=== PATIENT | female | born 1950 | race Caucasian/White ===

== ENCOUNTER 2021-08-03 10:43 | Inpatient (IN) | payer MEDICARE, MEDICAID ==
[~2021-08-03] VITALS: Ht 157.5 cm; Wt 84.1 kg
[~2021-08-03 10:43] MED LIST: ASPIR-LOW81 MG PO; DIAMOX 250 MG250 MG PO; IPRAT-ALBUT 0.5-3 ML INH; LISINOPRIL5 MG PO; PROTONIX40 MG PO
[2021-08-03 11:51] LABS: HEMOGLOBIN 15.6 gm/dl (12.3-15.3); RED BLOOD COUNT 5.54 M/UL (4.00-5.10)
[2021-08-03] MEDS ORDERED: MULTIVITAMIN1 EACH PO (17:22)
[2021-08-04 02:26] LABS: HEMOGLOBIN 14.9 gm/dl (12.3-15.3); RED BLOOD COUNT 5.35 M/UL (4.00-5.10)
[2021-08-04 02:40] LABS: WHITE BLOOD COUNT 36.4 K/UL (4.5-11.0)
[2021-08-05 04:59] LABS: HEMOGLOBIN 13.4 gm/dl (12.3-15.3); RED BLOOD COUNT 4.89 M/UL (4.00-5.10)
[2021-08-05 05:33] LABS: BUN/CREATININE RATIO 33 (0-10)
[2021-08-05 05:37] LABS: WHITE BLOOD COUNT 22.1 K/UL (4.5-11.0)
[2021-08-05 12:54] LABS: BUN/CREATININE RATIO 34 (0-10)
[2021-08-05 19:52] LABS: BUN/CREATININE RATIO 30 (0-10)
[2021-08-06 04:39] LABS: HEMOGLOBIN 12.6 gm/dl (12.3-15.3); RED BLOOD COUNT 4.62 M/UL (4.00-5.10)
[2021-08-06 04:44] LABS: WHITE BLOOD COUNT 16.4 K/UL (4.5-11.0)
[2021-08-06 05:00] LABS: BUN/CREATININE RATIO 29 (0-10)
[2021-08-07 05:05] LABS: HEMOGLOBIN 11.9 gm/dl (12.3-15.3); RED BLOOD COUNT 4.38 M/UL (4.00-5.10); WHITE BLOOD COUNT 14.9 K/UL (4.5-11.0)
[2021-08-07 05:32] LABS: BUN/CREATININE RATIO 28 (0-10)
[2021-08-08 04:41] LABS: HEMOGLOBIN 11.5 gm/dl (12.3-15.3); RED BLOOD COUNT 4.35 M/UL (4.00-5.10)
[2021-08-08 04:50] LABS: WHITE BLOOD COUNT 6.1 K/UL (4.5-11.0)
[2021-08-08 05:01] LABS: BUN/CREATININE RATIO 35 (0-10)
[2021-08-09 04:35] LABS: RED BLOOD COUNT 4.62 M/UL (4.00-5.10)
[2021-08-09 04:48] LABS: BUN/CREATININE RATIO 40 (0-10)
[2021-08-10 05:18] LABS: HEMOGLOBIN 13.3 gm/dl (12.3-15.3); RED BLOOD COUNT 5.01 M/UL (4.00-5.10)
[2021-08-10 05:39] LABS: BUN/CREATININE RATIO 51 (0-10)
[2021-08-11 04:16] LABS: HEMOGLOBIN 13.5 gm/dl (12.3-15.3); RED BLOOD COUNT 5.2 M/UL (4.00-5.10)
[2021-08-11 04:30] LABS: WHITE BLOOD COUNT 11.1 K/UL (4.5-11.0)
[2021-08-11 04:44] LABS: BUN/CREATININE RATIO 53 (0-10)
[2021-08-12 05:53] LABS: BUN/CREATININE RATIO 48 (0-10)
[2021-08-14 05:08] LABS: HEMOGLOBIN 14.1 gm/dl (12.3-15.3); RED BLOOD COUNT 5.22 M/UL (4.00-5.10); WHITE BLOOD COUNT 17.1 K/UL (4.5-11.0)
[2021-08-14 05:19] LABS: BUN/CREATININE RATIO 56 (0-10)
[2021-08-15 04:58] LABS: HEMOGLOBIN 13.8 gm/dl (12.3-15.3); RED BLOOD COUNT 5.23 M/UL (4.00-5.10)
[2021-08-15 04:59] LABS: WHITE BLOOD COUNT 12.6 K/UL (4.5-11.0)
[2021-08-18 05:14] LABS: RED BLOOD COUNT 4.33 M/UL (4.00-5.10); WHITE BLOOD COUNT 4.8 K/UL (4.5-11.0)
[2021-08-18 05:15] LABS: HEMOGLOBIN 11.4 gm/dl (12.3-15.3)
[2021-08-18 05:43] LABS: BUN/CREATININE RATIO 54 (0-10)
[2021-08-18] MEDS ORDERED: TYLENOL ELIXIR NG (12:18)
[2021-08-18] MEDS ORDERED: ENOXAPARIN40 MG/0.4 SC (12:18)
[2021-08-18] MEDS ORDERED: IPRAT-ALBUT 0.5-3 ML NEB (12:18)
[2021-08-18] MEDS ORDERED: CHRONULAC20 GM/30 M NG (12:18)
[2021-08-18] MEDS ORDERED: BISACODYL10 MG PR (12:18)
== END 2021-08-18 16:05 | DRG 4 ==
LOC: ER1 10:43 → CDU 15:55 → CCU 15:55 → CDU 18:25 → CCU 19:37
PROVIDERS: Internal Medicine Infectious Disease; Internal Medicine Nephrology; Internal Medicine Pulmonary Disease; Physician Assistant; Student in an Organized Health Care Education/Training Program; ADMIT Internal Medicine
PROC: 5A1955Z Respiratory Ventilation, Greater than 96 Consecutive Hours (ICD-10-PCS; principal; 2021-08-03)
PROC: 0BH17EZ Insertion of Endotracheal Airway into Trachea, Via Natural or Artificial Opening (ICD-10-PCS; principal; 2021-08-03)
PROC: 3E033XZ Introduction of Vasopressor into Peripheral Vein, Percutaneous Approach (ICD-10-PCS; 2021-08-03)
PROC: 02HV33Z Insertion of Infusion Device into Superior Vena Cava, Percutaneous Approach (ICD-10-PCS; 2021-08-03)
PROC: B548ZZA Ultrasonography of Superior Vena Cava, Guidance (ICD-10-PCS; 2021-08-03)
PROC: B24BZZZ Ultrasonography of Heart with Aorta (ICD-10-PCS; 2021-08-04)
PROC: 0DH63UZ Insertion of Feeding Device into Stomach, Percutaneous Approach (ICD-10-PCS; 2021-08-06)
PROC: 3E0G76Z Introduction of Nutritional Substance into Upper GI, Via Natural or Artificial Opening (ICD-10-PCS; 2021-08-06)
PROC: 0BH17EZ Insertion of Endotracheal Airway into Trachea, Via Natural or Artificial Opening (ICD-10-PCS; 2021-08-06)
PROC: 0B113F4 Bypass Trachea to Cutaneous with Tracheostomy Device, Percutaneous Approach (ICD-10-PCS; 2021-08-11)
DX: A41.9 Sepsis, unspecified organism (principal); J96.21 Acute and chronic respiratory failure with hypoxia; J96.22 Acute and chronic respiratory failure with hypercapnia; J69.0 Pneumonitis due to inhalation of food and vomit; R65.21 Severe sepsis with septic shock; I21.A1 Myocardial infarction type 2; I50.33 Acute on chronic diastolic (congestive) heart failure; E66.2 Morbid (severe) obesity with alveolar hypoventilation; E87.1 Hypo-osmolality and hyponatremia; N17.9 Acute kidney failure, unspecified; J90 Pleural effusion, not elsewhere classified; J98.11 Atelectasis; I31.3 Pericardial effusion (noninflammatory); R18.8 Other ascites; K56.7 Ileus, unspecified; E87.2 Acidosis; Z20.822 Contact with and (suspected) exposure to COVID-19; R68.0 Hypothermia, not associated with low environmental temperature; M41.80 Other forms of scoliosis, site unspecified; E86.0 Dehydration; D72.828 Other elevated white blood cell count; T38.0X5A Adverse effect of glucocorticoids and synthetic analogues, initial encounter; J98.4 Other disorders of lung; R53.81 Other malaise; E87.8 Other disorders of electrolyte and fluid balance, not elsewhere classified; R74.01 Elevation of levels of liver transaminase levels; K43.9 Ventral hernia without obstruction or gangrene; E86.1 Hypovolemia; E87.5 Hyperkalemia; R41.0 Disorientation, unspecified; Z91.14 Patient's other noncompliance with medication regimen; Z88.1 Allergy status to other antibiotic agents; Z88.0 Allergy status to penicillin; Z88.8 Allergy status to other drugs, medicaments and biological substances; Z68.31 Body mass index [BMI] 31.0-31.9, adult; M41.9 Scoliosis, unspecified
CPT/HCPCS: ECHO; 31500; 36415; 36600; 51702; 70450; 71045; 74018; 80048; 80053; 80202; 81001; 82436; 82533; 82550; 82553; 82570; 82803; 83540; 83550; 83605; 83735; 83880; 84100; 84132; 84133; 84156; 84295; 84300; 84439; 84443; 84484; 85018; 85025; 85610; 85652; 86140; 86850; 86900; 86901; 87040; 87070; 87086; 87205; 92526; 92610; 93005; 93306; 94002; 94003; 94640; 94664; 94760; 96374; 96375; 97110-GP-CQ; 97162; 97166; 97530; 97530-GP-CQ; 99285; C1769; C9113; J0360; J1120; J1205; J1335; J1650; J1756; J1940; J2185; J2250; J2370; J2405; J2704; J2765; J2920; J3010; J3370; J7030; J7050; P9047; Q9967; U0002